=== PATIENT | female | born 1955 | race Caucasian/White ===

== ENCOUNTER → 2016-12-11 | Outpatient (CLI) | payer BC ==
[~2016-12-11] MED LIST: ALBUAER2 INH; AMLO2.5T PO; ASPCH81 PO; ATOR-24 PO; ENBER15 PO; FOLI1TAB7 PO; FURO-85 PO; GABA-113 PO; HYDR0.5T PO; LSN5 PO; MCRK20 PO; PILO5TAB10 PO; PRED-301 PO; TPRSR25 PO; ULT/50 PO
[2016-12-16 19:18] LABS: ANTI-DNASE B AB TC 256 119 U/mL (< 301)
== END | disposition home or self-care (01) ==
LOC: C.LAB 15:40
PROVIDERS: ATTEND Internal Medicine Rheumatology
DX: M35.00 Sjogren syndrome, unspecified (principal); I73.00 Raynaud's syndrome without gangrene; M81.0 Age-related osteoporosis without current pathological fracture

== ENCOUNTER → 2016-12-31 | Outpatient (CLI) | payer BC ==
[2016-12-31 09:34] LABS: HEMATOCRIT 39.3 % (37-47); MEAN CELL VOLUME 91.2 fL (80-100); MEAN CORPUSCULAR HGB CONC 31.8 g/dl (32-36); MEAN PLATELET VOLUME 10.5 fL (7.4-10.4); PLATELET COUNT 228 K/uL (130-400); RED BLOOD COUNT 4.31 M/uL (4.2-5.4)
[2016-12-31 09:48] LABS: ALT/SGPT 37 U/L (12-78); AST/SGOT 20 U/L (15-37); BLOOD UREA NITROGEN 15 mg/dl (7-18); BUN/CREATININE RATIO 17.2 (10-20); CALCIUM 9.8 mg/dl (8.5-10.1); CARBON DIOXIDE 27 mmol/L (21-32); CHLORIDE 107 mmol/L (98-107); CREATININE 0.88 mg/dl (0.60-1.20); GLUCOSE 96 mg/dl (70-99); POTASSIUM 3.8 mmol/L (3.5-5.1); SODIUM 141 mmol/L (136-145)
[2016-12-31 09:51] LABS: CHOLESTEROL 192 mg/dl (0-200); CHOLESTEROL/HDL RATIO 1.8; HDL CHOLESTEROL 104 mg/dl; LDL CHOLESTEROL CALCULATED 76 mg/dl; TRIGLYCERIDES 62 mg/dl (0-150); VERY LOW DENSITY LIPOPROT CALC 12 mg/dl
== END | disposition home or self-care (01) ==
LOC: C.LAB1850 08:43
PROVIDERS: ATTEND Internal Medicine Cardiovascular Disease
DX: Z00.00 Encounter for general adult medical examination without abnormal findings (principal); I42.9 Cardiomyopathy, unspecified; I25.10 Atherosclerotic heart disease of native coronary artery without angina pectoris; R00.2 Palpitations; I50.32 Chronic diastolic (congestive) heart failure

== ENCOUNTER → 2017-07-07 | Outpatient (CLI) | payer BC ==
[2017-07-07 14:46] LABS: ALT/SGPT 40 U/L (12-78); AST/SGOT 22 U/L (15-37); BLOOD UREA NITROGEN 19 mg/dl (7-18); BUN/CREATININE RATIO 22.2 (10-20); CARBON DIOXIDE 29 mmol/L (21-32); CHLORIDE 108 mmol/L (98-107); CREATININE 0.84 mg/dl (0.60-1.20); GLUCOSE 89 mg/dl (70-99); HEMATOCRIT 38.7 % (37-47); MEAN CELL VOLUME 91.7 fL (80-100); MEAN CORPUSCULAR HEMOGLOBIN 28.4 pg (25-34); MEAN PLATELET VOLUME 10.5 fL (7.4-10.4); PLATELET COUNT 254 K/uL (130-400); POTASSIUM 4.1 mmol/L (3.5-5.1); RED BLOOD COUNT 4.22 M/uL (4.2-5.4); SODIUM 139 mmol/L (136-145); WHITE BLOOD COUNT 6.32 K/uL (4.8-10.8)
== END | disposition home or self-care (01) ==
LOC: C.LAB1850 13:01
PROVIDERS: ATTEND Internal Medicine Cardiovascular Disease
DX: I42.9 Cardiomyopathy, unspecified (principal); I25.10 Atherosclerotic heart disease of native coronary artery without angina pectoris; R00.2 Palpitations; I50.32 Chronic diastolic (congestive) heart failure

== ENCOUNTER → 2018-01-13 | Outpatient (CLI) | payer BC ==
[~2018-01-13] MED LIST changes: -FOLI1TAB7 PO; +FOLI1TAB8 PO
--- NOTE | 2018-01-13 17:18 | DIAGNOSTIC IMAGING REPORT ---
CHEST 2 VIEWS ROUTINE CLINICAL HISTORY: Chronic cough COMPARISON STUDY: 01/16/2016 FINDINGS: The cardiac and mediastinal contours are normal. There is no evidence of focal pulmonary consolidation. There is no evidence of failure. No pleural effusions are visualized.[ IMPRESSION: No active disease in the chest. Electronically signed by: Lobo Lyle M.D. 01/13/2018 5:16 PM Dictated Date/Time: 01/13/2018 5:16 PM
[2018-01-13 17:44] LABS: HEMATOCRIT 34.3 % (37-47); HEMOGLOBIN 10.8 g/dL (12.0-16.0); MEAN CELL VOLUME 85.5 fL (80-100); MEAN CORPUSCULAR HEMOGLOBIN 26.9 pg (25-34); MEAN CORPUSCULAR HGB CONC 31.5 g/dl (32-36); MEAN PLATELET VOLUME 9.9 fL (7.4-10.4); PLATELET COUNT 228 K/uL (130-400); RED CELL DISTRIBUTION WIDTH CV 15.7 % (11.5-14.5); RED CELL DISTRIBUTION WIDTH SD 49.4 fL (36.4-46.3); WHITE BLOOD COUNT 6.22 K/uL (4.8-10.8)
[2018-01-13 18:14] LABS: ALT/SGPT 42 U/L (12-78); AST/SGOT 34 U/L (15-37); BLOOD UREA NITROGEN 14 mg/dl (7-18); CALCIUM 9.2 mg/dl (8.5-10.1); CARBON DIOXIDE 29 mmol/L (21-32); CREATININE 0.78 mg/dl (0.60-1.20); GLUCOSE 80 mg/dl (70-99); POTASSIUM 4.1 mmol/L (3.5-5.1); SODIUM 134 mmol/L (136-145)
== END | disposition home or self-care (01) ==
LOC: C.LAB 16:40
PROVIDERS: ATTEND Internal Medicine
DX: R05 Cough (principal); I42.9 Cardiomyopathy, unspecified; I25.10 Atherosclerotic heart disease of native coronary artery without angina pectoris; I50.32 Chronic diastolic (congestive) heart failure

== ENCOUNTER → 2018-01-19 | Outpatient (CLI) | payer BC ==
[2018-01-19 15:05] LABS: INFLUENZA B ANTIGEN Neg for Influ B (NEG)
== END | disposition home or self-care (01) ==
LOC: C.LABSPEC 14:39
PROVIDERS: ATTEND Internal Medicine
DX: B34.9 Viral infection, unspecified (principal)

== ENCOUNTER → 2018-03-01 | Outpatient (CLI) | payer BC ==
--- NOTE | 2018-03-02 07:48 | PULMONARY FUNCTION TEST ---
Spirometry shows a mild obstructive pattern. Repeat study done following bronchodilators showed no significant change in function. Flow volume loops were consistent with spirometric findings. Lung volumes are within the limits of normal. Diffusion is normal at 99% predicted.
== END | disposition home or self-care (01) ==
LOC: C.RC 09:39
PROVIDERS: ATTEND Internal Medicine
DX: R05 Cough (principal)

== ENCOUNTER 2023-04-29 17:26 | Inpatient (IN) ==
--- NOTE | 2023-04-29 17:39 | Emergency Department Note ---
History of Present Illness General Chief complaint: Leg Injury/Pain Stated complaint: REF BY DOC,POSSIBLE BLOOD CLOT,SWELLING LEFT LEG Time Seen by Provider: 04/29/23 17:38 History of Present Illness Maximum Pain Intensity: 7 This is a 67-year-old female with a history of basal cell carcinoma, CAD, chronic asthmatic bronchitis, chronic diastolic CHF, lymphocytic interstitial pneumonia, nonischemic cardiomyopathy, SVT, Raynaud's, reactive airway disease, Sjogren's that presents to the emergency department via private vehicle with complaints of "left leg pain/swelling, shortness of breath". The patient states that she has been experiencing left lower extremity edema x1 week. No known trauma or injury. No fevers. She has associated chills and nausea. She also notes increasing shortness of breath that is worse with exertion. She has been elevating her legs at night secondary to the edema. She states the edema is only involving the left lower extremity and not involvement on the right. She overall feels tired. She notes leg discomfort but no pain anywhere else. She notes a history of stroke in 2012. No current anticoagulant use. No history of GI bleed. No history of blood clots. She denies any blood in the stool. She denies any recent trauma or injury. Home Medications Medication Instructions Recorded Confirmed Type acetaminophen 650 mg 1,300 mg PO TID PRN Pain, Mild 06/16/19 04/29/23 History tablet,extended release albuterol sulfate 90 mcg/actuation 2 puffs inhalation Q4H PRN 06/16/19 04/29/23 History aerosol inhaler Shortness Of Breath Or Wheezing #1 g aspirin 81 mg chewable tablet 162 mg PO DAILY 06/16/19 04/29/23 History famotidine 40 mg tablet 40 mg PO BID 06/16/19 04/29/23 History hydroxychloroquine 200 mg tablet 200 mg PO DAILY 06/16/19 04/29/23 History pilocarpine HCl 7.5 mg tablet 7.5 mg PO QID 06/16/19 04/29/23 History potassium chloride 20 mEq 20 meq PO BID 06/16/19 04/29/23 History tablet,extended release prednisone 1 mg tablet 2 mg PO DAILY 06/16/19 04/29/23 History tramadol 50 mg tablet 50 mg PO Q6H PRN Pain, Moderate 06/16/19 04/29/23 History magnesium oxide 400 mg PO DAILY 01/09/20 04/29/23 History atorvastatin 40 mg tablet 40 mg PO DAILY #90 tabs 10/13/21 04/29/23 Rx losartan 25 mg tablet 25 mg PO DAILY #30 tabs 08/24/22 04/29/23 Rx metoprolol succinate 50 mg 50 mg PO DAILY #30 tabs 08/24/22 04/29/23 Rx tablet,extended release 24 hr amlodipine 2.5 mg tablet 2.5 mg PO DAILY #90 tabs 02/10/23 04/29/23 Rx cholecalciferol (vitamin D3) 50 50 mcg PO DAILY 04/29/23 04/29/23 History mcg (2,000 unit) capsule (Vitamin D3) folic acid 800 mcg tablet 0.8 mg PO DAILY 04/29/23 04/29/23 History furosemide 40 mg tablet (Lasix) 40 mg PO DAILY PRN Fluid Retention 04/29/23 04/29/23 History glucosam 750 mg-chondroi 100 1 tab PO BID 04/29/23 04/29/23 History mg-hyalur 1.65 mg-CF borate 108 mg tablet ([facility]) riboflavin (vitamin B2) 400 mg 400 mg PO DAILY 04/29/23 04/29/23 History tablet Allergies Allergy/AdvReac Type Severity Reaction Status Date / Time pneumococcal vaccine Allergy Severe Unknown Verified 04/29/23 18:42 clarithromycin Allergy Intermediate RASH Verified 04/29/23 18:42 levofloxacin Allergy Intermediate RASH, Verified 04/29/23 18:42 SWELLING Penicillins Allergy Intermediate RASH Verified 04/29/23 18:42 Quinolones Allergy Intermediate RASH Verified 04/29/23 18:42 Sulfa (Sulfonamide Allergy Intermediate RASH Verified 04/29/23 18:42 Antibiotics) erythromycin base AdvReac Intermediate UPSET Verified 04/29/23 18:42 STOMACH Past Med/Surg History Medical History Basal cell carcinoma CAD (coronary artery disease) Chronic asthmatic bronchitis Chronic diastolic CHF (congestive heart failure) Lymphocytic interstitial pneumonia Nonischemic cardiomyopathy Palpitations Paroxysmal SVT (supraventricular tachycardia) Raynaud disease Reactive airway disease Sjogrens syndrome Surgical History H/O cardiac radiofrequency ablation S/P cholecystectomy Family History (Updated 04/29/23 @ 23:45 by Alicia Wan DO) Father Cancer Sister Cancer Social History Smoking Status: Former smoker Age Started Using Tobacco: 21; Age Quit Using Tobacco: 33; Hx Alcohol Use: Yes Hx Substance Use: No Preferred Language: Pashto Pharmacy Graduate Intern Required: No Beliefs That Will Affect Care: None Current Living Situation: Alone Feels Safe at Home: Yes Review of Systems A total of 10 systems reviewed and were otherwise negative Physical Exam Vital Signs Vital Signs - 24 hr 04/29/23 17:27 04/29/23 17:49 04/29/23 18:03 Temperature 36.8 C Temperature Source Temporal Artery Scan Pulse Rate 109 H Pulse Rate [Apical] 109 H Respiratory Rate 18 19 Respiratory Effort / Characteristics Non-Labored Respiratory Depth Normal Normal Blood Pressure 132/64 Blood Pressure [Right Arm] 133/89 Blood Pressure Mean 86 Blood Pressure Mean [Right Arm] 103 Pulse Oximetry 98 96 96 Oxygen Delivery Method Room Air Room Air Room Air Oxygen Flow Rate Sepsis Recent Fever Within 48 Hours No Sepsis New/Unexplained Change in Mental Status No Sepsis Action Taken by Nursing No Action Required 04/29/23 17:53 04/29/23 19:53 Temperature Temperature Source Pulse Rate 96 H Pulse Rate [Apical] 97 H Respiratory Rate 20 Respiratory Effort / Characteristics Respiratory Depth Normal Blood Pressure Blood Pressure [Right Arm] 131/67 Blood Pressure Mean Blood Pressure Mean [Right Arm] 88 Pulse Oximetry 99 Oxygen Delivery Method Nasal Cannula Oxygen Flow Rate 2 Sepsis Recent Fever Within 48 Hours Sepsis New/Unexplained Change in Mental Status Sepsis Action Taken by Nursing VITAL SIGNS - Vital signs and nursing notes were reviewed. Stable and afebrile. GENERAL -67-year-old female appearing her stated age who is in no acute distress. Communicates well with provider and answers questions appropriately. SKIN - Without rashes. No meningeal or petechial rash however there is as ymmetric edema to the left lower extremity and no edema to the right lower extremity. HEAD - NC/AT. EYES - PERRL with EOMI bilaterally. Sclera anicteric. EARS - No deformities of external structures noted on gross examination bilaterally. NOSE - Midline and without cyanosis. No epistaxis or purulent drainage noted. MOUTH/OROPHARYNX - Without perioral cyanosis. NECK - No nuchal rigidity. LUNGS - Chest wall symmetric without accessory muscle use, intercostals retractions, or central cyanosis. Normal vesicular breath sounds CTA B/L. No wheezes, rales, or rhonchi appreciated. CARDIAC - RRR with S1/S2. No murmur, rubs, or gallops appreciated. ABDOMEN - Abdominal contour normal without pulsations or visible masses. BS normoactive all four quadrants. No tenderness, palpable masses, hepatosplenom egaly, or ascites noted. EXTREMITIES -left lower extremity and right lower extremity appropriately warm and well-perfused from an arterial standpoint noting within normal limit dorsalis pedis pulse and capillary refill. However, the left lower extremity is circumferentially edematous as noted above. No evidence of limb ischemia. Patient able to actively plantarflex/dorsiflex bilateral feet/ankles. No break in the integument. No wounds. +5/5 strength noted in UE/LE bilaterally. NEUROLOGIC - Cranial nerves II through XII grossly intact. PSYCH - A&O, and cooperates fully with examiner. Pt is very pleasant and interacts well with examiner. Course Administered Medications Heparin Sodium/Dextrose (Heparin Sodium/Dextrose) 25,000 units in 500 mls @ 17 mls/hr IV .Q24H [facility]; Protocol Stop: 05/29/23 19:59 Last Admin: 04/29/23 20:21 Dose: 850 units/hr, 17 mls/hr Documented By: Co-signed By: RAMANDEEP Discontinued Medications Heparin Sodium (Porcine) (Heparin Sod (Porcine) 1000 Unit/Ml) 4,000 units IV NOW ONE Stop: 04/29/23 20:16 Last Admin: 04/29/23 20:26 Dose: Not Given Documented By: Heparin Sodium (Porcine) (Heparin Sod (Porcine) 1000 Unit/Ml) 3,999 units IV NOW ONE Stop: 04/29/23 20:31 Last Admin: 04/29/23 20:20 Dose: 3,999 units Documented By: Co-signed By: RAMANDEEP Ioversol (Optiray 320 125ml) 119 ml IV ONCE ONE Stop: 04/29/23 18:55 Last Admin: 04/29/23 18:55 Dose: 119 ml Documented By: ROEL Critical Care Time Patient presents tachycardic with left lower extremity edema and exertional dyspnea. She was found to have bilateral pulmonary emboli with left lower extremity DVT. Patient was provided IV heparin. I have personally spent about 35 minutes of critical care time in the direct management of this patient. This includes bedside care, interpretation of diagnostic studies, and testing, discussion with consultants, patient and other required patient management activities. Medical Decision Making Laboratory Data 04/29/23 18:00 04/29/23 18:00 Lab Results 04/29/23 04/29/23 04/29/23 Range/Units 18:00 18:00 18:00 WBC 15.69 H (4.8-10.8) K/ul RBC 4.61 (4.20-5.40) M/uL Hgb 12.9 (12.0-16.0) g/dl POC Hgb (12.0-16.0) g/dl Hct 40.1 (37.0-47.0) % POC Hct (37-47) % MCV 87.0 (80.0-100.0) fL MCH 28.0 (25.0-34.0) pg MCHC 32.2 (32.0-36.0) g/dL RDW Std Deviation 54.4 H (36.4-46.3) fL RDW Coeff of Acacia 17.2 H (11.5-14.5) % Plt Count 165 (130-400) K/uL MPV 10.6 (9.4-12.4) fL Immature Gran % (Auto) 0.8 % Neut % (Auto) 80.6 % Lymph % (Auto) 9.7 % Wilkes % (Auto) 8.1 % Eos % (Auto) 0.5 % Baso % (Auto) 0.3 % Neut # (Auto) 12.64 H (1.40-6.50) K/uL Lymph # (Auto) 1.52 (1.2-3.4) K/uL Wilkes # (Auto) 1.27 H (0.11-0.59) K/uL Eos # (Auto) 0.08 (0-0.50) K/uL Baso # (Auto) 0.05 (0-0.2) K/uL Immature Gran # (Auto) 0.13 (0.01-0.20) K/uL PT 14.2 H (9.0-12.0) Seconds INR 1.3 H (0.9-1.1) APTT 26.7 (21.0-31.0) Seconds PTT Ratio 0.9 POC Sodium (135-144) mmol/L Sodium 135 L (136-145) mmol/L POC Potassium (3.3-5.0) mmol/L Potassium 4.5 (3.5-5.1) mmol/L POC Chloride (101-112) mmol/L Chloride 102 (98-107) mmol/L Carbon Dioxide 20 L (21-32) mmol/L POC Total CO2 (24-31) mmol/L Anion Gap 13 H (3-11) POC Anion Gap (16-25) mmol/L POC BUN (7-18) mg/dl BUN 52 H (6-23) mg/dl Creatinine 1.59 H (0.6-1.2) mg/dl POC Creatinine (0.6-1.3) mg/dl Est Cr Clr Drug Dosing 25.1 ml/min Est GFR ( Amer) 38.3 ml/min Est GFR (Non-Af Amer) 33.0 ml/min BUN/Creatinine Ratio 32.7 H (10-20) Glucose 107 H (70-99(Fasting)) mg/dl POC Glucose (other) (70-99) mg/dl Calcium 9.6 (8.6-10.3) mg/dl POC Ioniz Calcium Duane (1.12-1.32) mmol/l Total Bilirubin 0.9 (0.2-1.0) mg/dl AST 941 H (13-39) U/L ALT 1302 H (7-52) U/L Alkaline Phosphatase 508 H (34-104) U/L Troponin I High Sens 159.0 H* (0-14) pg/ml Total Protein 7.4 (6.0-8.3) gm/dl Albumin 4.2 (3.4-5.0) gm/dl Globulin 3.2 (2.5-4.0) gm/dl Albumin/Globulin Ratio 1.3 (0.9-2) TSH (0.300-4.500) uIu/ml SARS-CoV-2, RNA, NAAT (NEGATIVE) 06/15/23 06/15/23 06/15/23 Range/Units 18:00 18:06 18:30 WBC (4.8-10.8) K/ul RBC (4.20-5.40) M/uL Hgb (12.0-16.0) g/dl POC Hgb 14.6 (12.0-16.0) g/dl Hct (37.0-47.0) % POC Hct 43 (37-47) % MCV (80.0-100.0) fL MCH (25.0-34.0) pg MCHC (32.0-36.0) g/dL RDW Std Deviation (36.4-46.3) fL RDW Coeff of Acacia (11.5-14.5) % Plt Count (130-400) K/uL MPV (9.4-12.4) fL Immature Gran % (Auto) % Neut % (Auto) % Lymph % (Auto) % Wilkes % (Auto) % Eos % (Auto) % Baso % (Auto) % Neut # (Auto) (1.40-6.50) K/uL Lymph # (Auto) (1.2-3.4) K/uL Wilkes # (Auto) (0.11-0.59) K/uL Eos # (Auto) (0-0.50) K/uL Baso # (Auto) (0-0.2) K/uL Immature Gran # (Auto) (0.01-0.20) K/uL PT (9.0-12.0) Seconds INR (0.9-1.1) APTT (21.0-31.0) Seconds PTT Ratio POC Sodium 135 (135-144) mmol/L Sodium (136-145) mmol/L POC Potassium 4.5 (3.3-5.0) mmol/L Potassium (3.5-5.1) mmol/L POC Chloride 106 (101-112) mmol/L Chloride (98-107) mmol/L Carbon Dioxide (21-32) mmol/L POC Total CO2 19 L (24-31) mmol/L Anion Gap (3-11) POC Anion Gap 15.0 L (16-25) mmol/L POC BUN 51 H (7-18) mg/dl BUN (6-23) mg/dl Creatinine (0.6-1.2) mg/dl POC Creatinine 1.6 H (0.6-1.3) mg/dl Est Cr Clr Drug Dosing ml/min Est GFR ( Amer) ml/min Est GFR (Non-Af Amer) ml/min BUN/Creatinine Ratio (10-20) Glucose (70-99(Fasting)) mg/dl POC Glucose (other) 114 H (70-99) mg/dl Calcium (8.6-10.3) mg/dl POC Ioniz Calcium Duane 1.11 L (1.12-1.32) mmol/l Total Bilirubin (0.2-1.0) mg/dl AST (13-39) U/L ALT (7-52) U/L Alkaline Phosphatase (34-104) U/L Troponin I High Sens (0-14) pg/ml Total Protein (6.0-8.3) gm/dl Albumin (3.4-5.0) gm/dl Globulin (2.5-4.0) gm/dl Albumin/Globulin Ratio (0.9-2) TSH 1.846 (0.300-4.500) uIu/ml SARS-CoV-2, RNA, NAAT NEGATIVE (NEGATIVE) Imaging Data Radiologist's Impression: Chest CTA 04/29/23 17:55 CR Exam(s): CTA CHEST IV Amt: 119 ml optiray 320 EXAM: CT Angiography Chest With Intravenous Contrast CLINICAL HISTORY: Reason for exam: dyspnea, RLE edema. TECHNIQUE: Axial computed tomographic angiography images of the chest with intravenous contrast. CTDI is 7.05 mGy and DLP is 234.77 mGy-cm. Automated exposure control was utilized for the study. A dose lowering technique was utilized adhering to the principles of ALARA. MIP reconstructed images were created and reviewed. COMPARISON: CT chest on 07/03/2019 FINDINGS: Pulmonary arteries: Pulmonary emboli in the distal left pulmonary artery, extending into the segmental and subsegmental pulmonary arteries to the left upper lobe. Pulmonary emboli in the subsegmental pulmonary arteries to the right lower lobe and right upper lobe. Aorta: Atherosclerotic changes of the aorta. No aortic aneurysm or dissection. Lungs: Dependent atelectasis on the right. Patchy densities on the right lung base, concerning for an infectious/inflammatory process. Small nonspecific 4-5 mm nodules in the right lower lobe. Air cysts in the lower lobes. Pleural space: Small right pleural effusion. No pneumothorax. Heart: RV/LV ratio is less than 1. Mild cardiomegaly. No significant pericardial effusion. Bones/joints: No acute fracture. No dislocation. Soft tissues: Unremarkable. Lymph nodes: Unremarkable. No enlarged lymph nodes. Gallbladder and bile ducts: Prior cholecystectomy. IMPRESSION: 1. Pulmonary emboli in the distal left pulmonary artery, extending into the segmental and subsegmental pulmonary arteries to the left upper lobe. Pulmonary emboli in the subsegmental pulmonary arteries to the right lower lobe and right upper lobe. 2. Dependent atelectasis on the right. Patchy densities on the right lung base, concerning for an infectious/inflammatory process. 3. RV/LV ratio is less than 1. 4. Atherosclerotic changes of the aorta. No aortic aneurysm or dissection. 5. Small right pleural effusion. 6. Small nonspecific 4-5 mm nodules in the right lower lobe. Communications: Call Doctor Pulmonary Embolism Electronically signed by: Erika Archuleta M.D. 04/29/23 19:31 PM Venous Doppler Study 04/29/23 17:56 Exam(s): US VENOUS LEFT LOWER EXTREMITY EXAM: US Duplex Left Lower Extremity Veins CLINICAL HISTORY: Reason for exam: dyspnea, RLE edema. TECHNIQUE: Real-time duplex ultrasound scan of the left lower extremity veins integrating B-mode two-dimensional vascular structure, Doppler spectral analysis, color flow Doppler imaging and compression. COMPARISON: None FINDINGS: Deep veins: Occlusive thrombus in the left common femoral artery, proximal profunda femoral artery, superficial femoral artery, popliteal artery, and calf arteries. Superficial veins: Unremarkable. No thrombus in the visualized great saphenous vein. Soft tissues: No acute findings. No popliteal cyst. IMPRESSION: Occlusive thrombus throughout the left lower extremity veins. Electronically signed by: Erika Archuleta M.D. 04/29/23 22:13 PM MDM Narrative Patient was seen and evaluated as above in room C09. Review was performed of triage nursing notes and vital signs. I did review pertinent previous visits and patient history. After obtaining a thorough history and physical examination the above work up was performed. Patient presents to us today for assessment of atraumatic left lower extremity edema and progressively worsening exertional dyspnea and tiredness. Patient on examination is tachycardic. She is overall clinically well-appearing. Left lower extremity is edematous but appropriately warm and well-perfused from arterial standpoint. There is no evidence of phlegmasia/cerulea dolens. No evidence of limb ischemia. Options of care were discussed with the patient. IV access was established. Labs were drawn. [id number] creatinine was obtained and patient sent for CTA of the chest. Labs reveal leukocytosis 15.69. No anemia. Coags drawn. There is evidence of metabolic abnormality noting anion gap of 13, CO2 of 20, BUN of 52, creatinine of 1.59. There is evidence of significant transaminitis noting AST at 949 and ALT at 11/17/2001. Patient denies any excessive acetaminophen use. Alk phos 508. Troponin elevated at 159 and is felt to be secondary to PE. With the CT scan of the chest revealing pulmonary emboli in the setting of tachycardia and unilateral lower extremity edema I do believe that IV heparin is indicated. Bolus and drip ordered. Prior to IV heparin I did thoroughly discuss benefit versus risk of IV heparin. I discussed indication with the patient as well as alternatives. At this time no contraindications have been identified and it is felt that the benefits overall outweigh risk. Patient was pending ultrasound report of the left lower extremity at time of IV heparin. At this time I do believe that further evaluation and management in the inpatient setting is warranted. Patient reevaluated throughout her stay and continued to feel overall well. Left lower extremity discomfort was lessening. Case discussed with the hospitalist service. Please refer to further documentation regarding her stay. Ultrasound did result and reveals occlusive thrombus throughout the left lower extremity veins. It is important to note that upon evaluation and reassessment the patient does not have any findings to suggest cerulea dolens/limb ischemia. Case was discussed with the attending physician. An order was placed for continuous cardiac monitoring and revealed a rate of 115 bpm. EKG was obtained and reveals sinus tachycardia at a rate of 115 bpm. QTc 462. QRS 72. This was compared to EKG of January 16, 2016. T wave abnormalities noted. GCS: 15 In the evaluation and treatment of this patient the following differential diagnoses were entertained: WA, PE, dissection, DVT, compartment syndrome, pneumonia, among others. Impression & Plan Pulmonary emboli, DVT (deep venous thrombosis) Discharge Plan Visit Data Chief Complaint: Leg Injury/Pain Stated Complaint: REF BY DOC,POSSIBLE BLOOD CLOT,SWELLING LEFT LEG ED Provider: Charly Swanson ED Midlevel Provider: Catrachito Mccarty Discharge Problem: Pulmonary emboli, DVT (deep venous thrombosis) Patient Disposition: Admitted As Inpatient Condition: Good Discharge Instructions Interventions: ED Discharge Assessment Last Done: 04/29/23 22:28
[2023-04-29 18:22] LABS: iSTAT Creatinine 1.6 mg/dl (0.6-1.3); iSTAT Hemoglobin 14.6 g/dl (12.0-16.0); iSTAT Ionized Calcium 1.11 mmol/l (1.12-1.32); iSTAT Potassium 4.5 mmol/L (3.3-5.0)
[2023-04-29 18:24] LABS: Basophils # (auto) 0.05 K/uL (0-0.2); Basophils % (auto) 0.3 %; Eosinophils # (auto) 0.08 K/uL (0-0.50); Eosinophils % (auto) 0.5 %; Hematocrit (blood only) 40.1 % (37.0-47.0); Hemoglobin 12.9 g/dl (12.0-16.0); Immature Granulocytes # (auto) 0.13 K/uL (0.01-0.20); Immature Granulocytes % (auto) 0.8 %; Lymphocytes # (auto) 1.52 K/uL (1.2-3.4); Lymphocytes % (auto) 9.7 %; Mean Corpuscular Hgb Conc 32.2 g/dL (32.0-36.0); Mean Platelet Volume 10.6 fL (9.4-12.4); Monocytes # (auto) 1.27 K/uL (0.11-0.59); Monocytes % (auto) 8.1 %; Neutrophils # (auto) 12.64 K/uL (1.40-6.50); Neutrophils % (auto) 80.6 %; Platelet Count 165 K/uL (130-400); RDW Coefficient of Variation 17.2 % (11.5-14.5); RDW Standard Deviation 54.4 fL (36.4-46.3); Red Blood Count 4.61 M/uL (4.20-5.40); White Blood Count 15.69 K/ul (4.8-10.8)
[2023-04-29 18:39] LABS: BUN Creatinine Ratio 32.7 (10-20); Calcium 9.6 mg/dl (8.6-10.3); Creatinine Clr Calc Pharmacy 25.1 ml/min; Est GFR (African American) 38.3 ml/min; Potassium 4.5 mmol/L (3.5-5.1)
[2023-04-29 18:50] LABS: Albumin Globulin Ratio 1.3 (0.9-2); Albumin Level 4.2 gm/dl (3.4-5.0); Bilirubin,Total 0.9 mg/dl (0.2-1.0); Globulin 3.2 gm/dl (2.5-4.0); Total Protein 7.4 gm/dl (6.0-8.3)
[2023-04-29 18:52] LABS: INR 1.3 (0.9-1.1); Partial Thromboplastin Ratio 0.9; Partial Thromboplastin Time 26.7 Seconds (21.0-31.0); Prothrombin Time 14.2 Seconds (9.0-12.0)
[2023-04-29] MEDS ORDERED: OPTIRAY 320 125ml IV ONE (18:54)
--- NOTE | 2023-04-29 19:32 | CT Scan Report ---
Exam(s): CTA CHEST IV Amt: 119 ml optiray 320 EXAM: CT Angiography Chest With Intravenous Contrast CLINICAL HISTORY: Reason for exam: dyspnea, RLE edema. TECHNIQUE: Axial computed tomographic angiography images of the chest with intravenous contrast. CTDI is 7.05 mGy and DLP is 234.77 mGy-cm. Automated exposure control was utilized for the study. A dose lowering technique was utilized adhering to the principles of ALARA. MIP reconstructed images were created and reviewed. COMPARISON: CT chest on 07/03/2019 FINDINGS: Pulmonary arteries: Pulmonary emboli in the distal left pulmonary artery, extending into the segmental and subsegmental pulmonary arteries to the left upper lobe. Pulmonary emboli in the subsegmental pulmonary arteries to the right lower lobe and right upper lobe. Aorta: Atherosclerotic changes of the aorta. No aortic aneurysm or dissection. Lungs: Dependent atelectasis on the right. Patchy densities on the right lung base, concerning for an infectious/inflammatory process. Small nonspecific 4-5 mm nodules in the right lower lobe. Air cysts in the lower lobes. Pleural space: Small right pleural effusion. No pneumothorax. Heart: RV/LV ratio is less than 1. Mild cardiomegaly. No significant pericardial effusion. Bones/joints: No acute fracture. No dislocation. Soft tissues: Unremarkable. Lymph nodes: Unremarkable. No enlarged lymph nodes. Gallbladder and bile ducts: Prior cholecystectomy. IMPRESSION: 1. Pulmonary emboli in the distal left pulmonary artery, extending into the segmental and subsegmental pulmonary arteries to the left upper lobe. Pulmonary emboli in the subsegmental pulmonary arteries to the right lower lobe and right upper lobe. 2. Dependent atelectasis on the right. Patchy densities on the right lung base, concerning for an infectious/inflammatory process. 3. RV/LV ratio is less than 1. 4. Atherosclerotic changes of the aorta. No aortic aneurysm or dissection. 5. Small right pleural effusion. 6. Small nonspecific 4-5 mm nodules in the right lower lobe. Communications: Call Doctor Pulmonary Embolism Electronically signed by: Erika Archuleta M.D. 04/29/23 19:31 PM
[2023-04-29] MEDS ORDERED: Heparin IV Adult Wt-Based Standard WITH Bolus Protocol IV STA (19:37)
[2023-04-29] MEDS ORDERED: HEPARIN SOD (PORCINE) 1000 UNIT/ML IV ONE ×3 (19:52→20:30)
[2023-04-29] MEDS ORDERED: HEPARIN SODIUM/DEXTROSE 25,000 UNITS/500 ML BAG IV SCH (20:00)
--- NOTE | 2023-04-29 21:36 | History & Physical Report ---
Date of Service April 29, 2023 Assessment & Plan (1) Pulmonary emboli: (2) DVT (deep venous thrombosis): (3) Abnormal LFTs: (4) CAD (coronary artery disease): (5) Chronic diastolic CHF (congestive heart failure): (6) Sjogrens syndrome: (7) Hypertension: Plan: 67yo female presenting with one week of LLE edema and pain as well as progressive dyspnea. Found to have large occlusive LLE DVT as well as multiple PEs. Elevation of troponin to 159, possible right heart strain. Patient tachycardic on arrival. Now with HR=92bpm. Blood pressure has remained stable. Pulmonary Emboli/LLE DVT: PESI Score 88 - Class III risk - patient with history of HF and chronic lung disease which contributes to high score. Shock index=0.8, mildly elevated. Patient is overall asymptomatic. Denies chest pain or SOB at present. No obvious cause. Patient denies trauma or immobility preceding the LLE edema. She is not on hormone therapy. She is not uptodate on her cancer screening - consider underlying malignancy. -Admit to PCU -Continue heparin gtt -Check 2D echo -Trend troponin -Supplemental O2 as needed -Continue home Tramadol as needed Abnormal LFTs: Patient with elevated LFTs - CCM=503, ODU=7571 and EN=923. Last checked in 07/2020 and were normal. Ddx to include viral hepatitis, medication effects, venous thrommbosis -Check liver US with doppler -Check Acetaminophen level -Check Ammonia -Check acute hepatitis panel -Repeat LFTs in AM -Hold Atorvastatin Consider abdominal CT CAD: Patient with nonobstructive CAD. She was seen by Cardiology last on 06/30/21. Patient denies chest pain -Continue ASA - decrease to 81mg po daily -Holding Atorvastatin now given elevated LFTs -Holding antihypertensives - Losartan and Metoprolol given acute PE -Repeat troponin Chronic diastolic CHF - NICM - thought to be secondary to myocarditis or possibly Takotsubo. Well compensated, no evidence of failure -Holding Metoprolol and Losartan for now -Check 2D echo Sjogrens syndrome -Continue Hydroxychloroquine -Continue Prednisone Hypertension - blood pressure adequate at present. Concern for developing hypotension in setting of acute PE with large DVT -Hold Amlodipine -Hold Losartan -Hold Metoprolol -Continue to monitor F/E/N - Heplock. Electroltyes WNL. PO as tolerated Ppx - Heparin gtt Dispo - Admit to PCU Code - DNR/DNI per discussion with patient History of Present Illness Chief Complaint: LLE swelling Primary Care Provider: NO PCP Pia Bonilla is a pleasant 67yo female with history of CAD, NICM and Sjogrens syndrome presenting with LLE edema and SOB. Patient developed acute swelling of her LLE approximately one week ago involving the entire left leg and thigh. Her leg was stiff and painful. She thought the swelling was secondary to lymphedema so she has been wrapping her leg as well as performing massage and elevating it. Her edema has persisted and she has had progressive pain in her RLE, making walking and ADLs difficult. Patient also admits to 1 week of progressive PELAYO. She denies chest pain, palpitations, dizziness or syncope. She has never had a blood clot before. Denies recent travel or prolonged immobility. Denies hormone use, trauma or family history of VTE. She is NOT up to date with her age appropriate cancer screenings to include Pap smear, mammogram or colonoscopy. Patient has had ongoing fatigue, chills and intermittent diarrhea as well as body aches and nausea with several episodes of bilious vomiting. She admits to poor appetite and decreased oral intake over the last week as well as generalized weakness and falls. In the ER she is tachycardic with HR of 109. Saturations have been adequate on room air - patient placed on supplemental O2 by DE for comfort. ER Course: Heparin gtt Allergies Allergy/AdvReac Type Severity Reaction Status Date / Time pneumococcal vaccine Allergy Severe Unknown Verified 04/29/23 18:42 clarithromycin Allergy Intermediate RASH Verified 04/29/23 18:42 levofloxacin Allergy Intermediate RASH, Verified 04/29/23 18:42 SWELLING Penicillins Allergy Intermediate RASH Verified 04/29/23 18:42 Quinolones Allergy Intermediate RASH Verified 04/29/23 18:42 Sulfa (Sulfonamide Allergy Intermediate RASH Verified 04/29/23 18:42 Antibiotics) erythromycin base AdvReac Intermediate UPSET Verified 04/29/23 18:42 STOMACH Home Medications Medication Instructions Recorded Confirmed Type acetaminophen 650 mg 1,300 mg PO TID PRN Pain, Mild 06/16/19 04/29/23 History tablet,extended release albuterol sulfate 90 mcg/actuation 2 puffs inhalation Q4H PRN 06/16/19 04/29/23 History aerosol inhaler Shortness Of Breath Or Wheezing #1 g aspirin 81 mg chewable tablet 162 mg PO DAILY 06/16/19 04/29/23 History famotidine 40 mg tablet 40 mg PO BID 06/16/19 04/29/23 History hydroxychloroquine 200 mg tablet 200 mg PO DAILY 06/16/19 04/29/23 History pilocarpine HCl 7.5 mg tablet 7.5 mg PO QID 06/16/19 04/29/23 History potassium chloride 20 mEq 20 meq PO BID 06/16/19 04/29/23 History tablet,extended release prednisone 1 mg tablet 2 mg PO DAILY 06/16/19 04/29/23 History tramadol 50 mg tablet 50 mg PO Q6H PRN Pain, Moderate 06/16/19 04/29/23 History magnesium oxide 400 mg PO DAILY 01/09/20 04/29/23 History atorvastatin 40 mg tablet 40 mg PO DAILY #90 tabs 10/13/21 04/29/23 Rx losartan 25 mg tablet 25 mg PO DAILY #30 tabs 08/24/22 04/29/23 Rx metoprolol succinate 50 mg 50 mg PO DAILY #30 tabs 08/24/22 04/29/23 Rx tablet,extended release 24 hr amlodipine 2.5 mg tablet 2.5 mg PO DAILY #90 tabs 02/10/23 04/29/23 Rx cholecalciferol (vitamin D3) 50 50 mcg PO DAILY 04/29/23 04/29/23 History mcg (2,000 unit) capsule (Vitamin D3) folic acid 800 mcg tablet 0.8 mg PO DAILY 04/29/23 04/29/23 History furosemide 40 mg tablet (Lasix) 40 mg PO DAILY PRN Fluid Retention 04/29/23 04/29/23 History glucosam 750 mg-chondroi 100 1 tab PO BID 04/29/23 04/29/23 History mg-hyalur 1.65 mg-CF borate 108 mg tablet ([email or web address]) riboflavin (vitamin B2) 400 mg 400 mg PO DAILY 04/29/23 04/29/23 History tablet Past Med/Surg History Medical History Basal cell carcinoma CAD (coronary artery disease) Chronic asthmatic bronchitis Chronic diastolic CHF (congestive heart failure) Lymphocytic interstitial pneumonia Nonischemic cardiomyopathy Palpitations Paroxysmal SVT (supraventricular tachycardia) Raynaud disease Reactive airway disease Sjogrens syndrome Surgical History H/O cardiac radiofrequency ablation S/P cholecystectomy Family History (Updated 04/29/23 @ 23:45 by Alicia Wan DO) Father Cancer Sister Cancer Social History Smoking Status: Former smoker Age Started Using Tobacco: 21; Age Quit Using Tobacco: 33; Hx Alcohol Use: Yes Hx Substance Use: No Preferred Language: 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 Beliefs That Will Affect Care: None Current Living Situation: Alone Feels Safe at Home: Yes Review of Systems Review of Systems: All systems reviewed & are unremarkable except as noted in HPI & below Physical Exam Physical Exam: General: patient resting comfortably, NAD, non-toxic in appearance, AA&O x 4 Skin: warm, dry, intact, no rashes or lesions HEENT: NC/AT, PERRL, EOMI, anicteric sclera, conjunctiva without injection, external ear normal to inspection and nontender, nares patent, moist mucus membranes, dentition intact, no oropharyngeal lesions, neck supple, trachea midline, no LAD, no thyromegaly, no JVD Heart: +S1/S2, regular, no m/r/g Lungs: equal air entry bilaterally, no rales/rhonchi/wheezes Abd: +BS, soft, NT/ND, no masses/organomegaly/ascites Ext: warm, 2+ pulses in UE/LE bilaterally, no clubbing/cyanosis, 3+ edema of LLE to thigh, tender to palpation, 2+ pulses, slight discoloration of toes Neuro: nonfocal, patient AA&O x 4, speech intact, no facial droop, moving all extremities on command with equal strength 5/5 Results & Data Results & Data Vital Signs (Past 12 Hours) Vital Signs Temp Pulse Pulse Resp BP BP Pulse Ox 04/29/23 19:53 97 H 20 131/67 99 04/29/23 17:53 96 H 04/29/23 18:03 96 04/29/23 17:49 109 H 19 133/89 96 04/29/23 17:27 36.8 C 109 H 18 132/64 98 O2 Del Method O2 Flow Rate 04/29/23 19:53 Nasal Cannula 2 04/29/23 17:53 04/29/23 18:03 Room Air 04/29/23 17:49 Room Air 04/29/23 17:27 Room Air Laboratory Results Laboratory Results WBC 15.69 K/ul (4.8-10.8) H 04/29/23 18:00 RBC 4.61 M/uL (4.20-5.40) 04/29/23 18:00 Hgb 12.9 g/dl (12.0-16.0) 04/29/23 18:00 POC Hgb 14.6 g/dl (12.0-16.0) 04/29/23 18:06 Hct 40.1 % (37.0-47.0) 04/29/23 18:00 POC Hct 43 % (37-47) 04/29/23 18:06 MCV 87.0 fL (80.0-100.0) 04/29/23 18:00 MCH 28.0 pg (25.0-34.0) 04/29/23 18:00 MCHC 32.2 g/dL (32.0-36.0) 04/29/23 18:00 RDW Std Deviation 54.4 fL (36.4-46.3) H 04/29/23 18:00 RDW Coeff of Acacia 17.2 % (11.5-14.5) H 04/29/23 18:00 Plt Count 165 K/uL (130-400) 04/29/23 18:00 MPV 10.6 fL (9.4-12.4) 04/29/23 18:00 Immature Gran % (Auto) 0.8 % 04/29/23 18:00 Neut % (Auto) 80.6 % 04/29/23 18:00 Lymph % (Auto) 9.7 % 04/29/23 18:00 [place] % (Auto) 8.1 % 04/29/23 18:00 Eos % (Auto) 0.5 % 04/29/23 18:00 Baso % (Auto) 0.3 % 04/29/23 18:00 Neut # (Auto) 12.64 K/uL (1.40-6.50) H 04/29/23 18:00 Lymph # (Auto) 1.52 K/uL (1.2-3.4) 04/29/23 18:00 [place] # (Auto) 1.27 K/uL (0.11-0.59) H 04/29/23 18:00 Eos # (Auto) 0.08 K/uL (0-0.50) 04/29/23 18:00 Baso # (Auto) 0.05 K/uL (0-0.2) 04/29/23 18:00 Immature Gran # (Auto) 0.13 K/uL (0.01-0.20) 04/29/23 18:00 PT 14.2 Seconds (9.0-12.0) H 04/29/23 18:00 INR 1.3 (0.9-1.1) H 04/29/23 18:00 APTT 26.7 Seconds (21.0-31.0) 04/29/23 18:00 PTT Ratio 0.9 04/29/23 18:00 POC Sodium 135 mmol/L (135-144) 04/29/23 18:06 Sodium 135 mmol/L (136-145) L 04/29/23 18:00 POC Potassium 4.5 mmol/L (3.3-5.0) 04/29/23 18:06 Potassium 4.5 mmol/L (3.5-5.1) 04/29/23 18:00 POC Chloride 106 mmol/L (101-112) 04/29/23 18:06 Chloride 102 mmol/L (98-107) 04/29/23 18:00 Carbon Dioxide 20 mmol/L (21-32) L 04/29/23 18:00 POC Total CO2 19 mmol/L (24-31) L 04/29/23 18:06 Anion Gap 13 (3-11) H 04/29/23 18:00 POC Anion Gap 15.0 mmol/L (16-25) L 04/29/23 18:06 POC BUN 51 mg/dl (7-18) H 04/29/23 18:06 BUN 52 mg/dl (6-23) H 04/29/23 18:00 Creatinine 1.59 mg/dl (0.6-1.2) H 04/29/23 18:00 POC Creatinine 1.6 mg/dl (0.6-1.3) H 04/29/23 18:06 Est Cr Clr Drug Dosing 25.1 ml/min 04/29/23 18:00 Est GFR ( Amer) 38.3 ml/min 04/29/23 18:00 Est GFR (Non-Af Amer) 33.0 ml/min 04/29/23 18:00 BUN/Creatinine Ratio 32.7 (10-20) H 04/29/23 18:00 Glucose 107 mg/dl (70-99(Fasting)) H 04/29/23 18:00 POC Glucose (other) 114 mg/dl (70-99) H 04/29/23 18:06 Calcium 9.6 mg/dl (8.6-10.3) 04/29/23 18:00 POC Ioniz Calcium [place] 1.11 mmol/l (1.12-1.32) L 04/29/23 18:06 Total Bilirubin 0.9 mg/dl (0.2-1.0) 04/29/23 18:00 AST 941 U/L (13-39) H 04/29/23 18:00 ALT 1302 U/L (7-52) H 04/29/23 18:00 Alkaline Phosphatase 508 U/L (34-104) H 04/29/23 18:00 Troponin I High Sens 159.0 pg/ml (0-14) H* 04/29/23 18:00 Total Protein 7.4 gm/dl (6.0-8.3) 04/29/23 18:00 Albumin 4.2 gm/dl (3.4-5.0) 04/29/23 18:00 Globulin 3.2 gm/dl (2.5-4.0) 04/29/23 18:00 Albumin/Globulin Ratio 1.3 (0.9-2) 04/29/23 18:00 TSH 1.846 uIu/ml (0.300-4.500) 04/29/23 18:00 SARS-CoV-2, RNA, NAAT NEGATIVE (NEGATIVE) 04/29/23 18:30 Impressions Chest CTA 04/29/23 17:55 CR Exam(s): CTA CHEST IV Amt: 119 ml optiray 320 EXAM: CT Angiography Chest With Intravenous Contrast CLINICAL HISTORY: Reason for exam: dyspnea, RLE edema. TECHNIQUE: Axial computed tomographic angiography images of the chest with intravenous contrast. CTDI is 7.05 mGy and DLP is 234.77 mGy-cm. Automated exposure control was utilized for the study. A dose lowering technique was utilized adhering to the principles of ALARA. MIP reconstructed images were created and reviewed. COMPARISON: CT chest on 07/03/2019 FINDINGS: Pulmonary arteries: Pulmonary emboli in the distal left pulmonary artery, extending into the segmental and subsegmental pulmonary arteries to the left upper lobe. Pulmonary emboli in the subsegmental pulmonary arteries to the right lower lobe and right upper lobe. Aorta: Atherosclerotic changes of the aorta. No aortic aneurysm or dissection. Lungs: Dependent atelectasis on the right. Patchy densities on the right lung base, concerning for an infectious/inflammatory process. Small nonspecific 4-5 mm nodules in the right lower lobe. Air cysts in the lower lobes. Pleural space: Small right pleural effusion. No pneumothorax. Heart: RV/LV ratio is less than 1. Mild cardiomegaly. No significant pericardial effusion. Bones/joints: No acute fracture. No dislocation. Soft tissues: Unremarkable. Lymph nodes: Unremarkable. No enlarged lymph nodes. Gallbladder and bile ducts: Prior cholecystectomy. IMPRESSION: 1. Pulmonary emboli in the distal left pulmonary artery, extending into the segmental and subsegmental pulmonary arteries to the left upper lobe. Pulmonary emboli in the subsegmental pulmonary arteries to the right lower lobe and right upper lobe. 2. Dependent atelectasis on the right. Patchy densities on the right lung base, concerning for an infectious/inflammatory process. 3. RV/LV ratio is less than 1. 4. Atherosclerotic changes of the aorta. No aortic aneurysm or dissection. 5. Small right pleural effusion. 6. Small nonspecific 4-5 mm nodules in the right lower lobe. Communications: Call Doctor Pulmonary Embolism Electronically signed by: Erika Archuleta M.D. 04/29/23 19:31 PM Venous Doppler Study 04/29/23 17:56 Exam(s): US VENOUS LEFT LOWER EXTREMITY EXAM: US Duplex Left Lower Extremity Veins CLINICAL HISTORY: Reason for exam: dyspnea, RLE edema. TECHNIQUE: Real-time duplex ultrasound scan of the left lower extremity veins integrating B-mode two-dimensional vascular structure, Doppler spectral analysis, color flow Doppler imaging and compression. COMPARISON: None FINDINGS: Deep veins: Occlusive thrombus in the left common femoral artery, proximal profunda femoral artery, superficial femoral artery, popliteal artery, and calf arteries. Superficial veins: Unremarkable. No thrombus in the visualized great saphenous vein. Soft tissues: No acute findings. No popliteal cyst. IMPRESSION: Occlusive thrombus throughout the left lower extremity veins. Electronically signed by: Erika Archuleta M.D. 04/29/23 22:13 PM ECG Additional Comments: EKG with ST at 115bpm, normal axis, TA=055, QRS=72, HIs=958, ST changes present in lateral leads, P waves appear slightly peaked, ?SIRIA? PG Care Time/CCT Total # of Minutes Spent Total Time Spent with Patient: Total time spent is greater than 50% in coordination of care (as documented) at patient's floor/unit and/or counseling patient: Coding Level of Care Code 46142 INT INP/OBS CARE 3/75MIN Diagnoses Pulmonary emboli I26.99 DVT (deep venous thrombosis) I82.409 Abnormal LFTs R79.89 CAD (coronary artery disease) I25.10 Chronic diastolic CHF (congestive heart failure) I50.32 Sjogrens syndrome M35.00 Hypertension I10
--- NOTE | 2023-04-29 22:13 | Ultrasound Report ---
Exam(s): US VENOUS LEFT LOWER EXTREMITY EXAM: US Duplex Left Lower Extremity Veins CLINICAL HISTORY: Reason for exam: dyspnea, RLE edema. TECHNIQUE: Real-time duplex ultrasound scan of the left lower extremity veins integrating B-mode two-dimensional vascular structure, Doppler spectral analysis, color flow Doppler imaging and compression. COMPARISON: None FINDINGS: Deep veins: Occlusive thrombus in the left common femoral artery, proximal profunda femoral artery, superficial femoral artery, popliteal artery, and calf arteries. Superficial veins: Unremarkable. No thrombus in the visualized great saphenous vein. Soft tissues: No acute findings. No popliteal cyst. IMPRESSION: Occlusive thrombus throughout the left lower extremity veins. Electronically signed by: Erika Archuleta M.D. 04/29/23 22:13 PM
[2023-04-29] MEDS ORDERED: ALBUTEROL HFA 8 GM INHALER INH PRN (22:55)
[2023-04-29] MEDS ORDERED: traMADol HCL 50 MG TABLET PO PRN (22:55)
[2023-04-30 03:03] LABS: Partial Thromboplastin Ratio > 4.9
[2023-04-30 03:20] LABS: Partial Thromboplastin Time > 139.0 Seconds (21.0-31.0)
[2023-04-30 04:57] LABS: Hematocrit (blood only) 34.3 % (37.0-47.0); Hemoglobin 11.3 g/dl (12.0-16.0); Mean Corpuscular Hemoglobin 27.8 pg (25.0-34.0); Mean Corpuscular Hgb Conc 32.9 g/dL (32.0-36.0); Mean Corpuscular Volume 84.3 fL (80.0-100.0); Mean Platelet Volume 10.6 fL (9.4-12.4); Platelet Count 158 K/uL (130-400); RDW Coefficient of Variation 17.2 % (11.5-14.5); RDW Standard Deviation 53.1 fL (36.4-46.3); Red Blood Count 4.07 M/uL (4.20-5.40); White Blood Count 16.32 K/ul (4.8-10.8)
[2023-04-30 05:15] LABS: Albumin Level 3.4 gm/dl (3.4-5.0); BUN Creatinine Ratio 37.7 (10-20); Bilirubin Direct 0.3 mg/dl (0-0.2); Bilirubin,Total 0.8 mg/dl (0.2-1.0); Calcium 8.9 mg/dl (8.6-10.3); Est GFR (African American) 52.7 ml/min; Est GFR (Non-African American) 45.5 ml/min; Potassium 4.8 mmol/L (3.5-5.1); Total Protein 5.9 gm/dl (6.0-8.3)
[2023-04-30 06:06] LABS: Partial Thromboplastin Time 55.2 Seconds (21.0-31.0)
--- NOTE | 2023-04-30 07:05 | Ultrasound Report ---
ABDOMINAL ULTRASOUND, RIGHT UPPER QUADRANT HISTORY: Acutely elevated LFTs abnormal LFTs. COMPARISON: CTA chest of same day FINDINGS: Pancreas: The pancreas demonstrates a normal echotexture. Liver: Unremarkable. Gallbladder: Surgically absent. CBD: 0.3 cm. Right kidney: Mild pelvocaliectasis with suggested urothelial thickening. IMPRESSION: 1. Cholecystectomy. 2. No biliary duct dilation. 3. Mild right-sided pelvocaliectasis with urothelial thickening. Correlate with urinalysis. ACT 112: Negative or not required by law. Electronically signed by: Cain Mei M.D. 04/30/2023 7:04 AM
--- NOTE | 2023-04-30 07:32 | Ultrasound Report ---
US duplex portal hepatic veins CLINICAL HISTORY: elevated LFTs, extensive clot TECHNIQUE: Grayscale, color and spectral waveform Doppler examination of the abdomen was performed. Comparison: None available at the time of this dictation. FINDINGS: The hepatic veins, portal veins, IVC and splenic vein are patent with no thrombus identified. Flow is in the correct direction. No ascites is seen. IMPRESSION: No portal vein thrombosis. ACT 112: Negative or not required by law. Electronically signed by: Parker Salguero M.D. 04/30/2023 7:30 AM
[2023-04-30] MEDS: FAMOTIDINE 20 MG TAB PO SCH (08:43)
[2023-04-30] MEDS: HYDROXYCHLOROQUINE SULFATE 200 MG TAB PO SCH (08:45)
[2023-04-30] MEDS: predniSONE 1 MG TAB PO SCH (08:45)
[2023-04-30] MEDS: ASPIRIN 81 MG CHEW PO SCH (08:46)
[2023-04-30] MEDS: METOPROLOL SUCC 50MG EXT REL TAB PO SCH (08:56)
[2023-04-30] MEDS ORDERED: ASPIRIN 81 MG CHEW PO SCH (09:00)
--- NOTE | 2023-04-30 11:25 | XCELERA ---
[id number]
--- NOTE | 2023-04-30 11:33 | Electrocardiogram Report ---
Test Reason : Blood Pressure : / mmHG Vent. Rate : 115 BPM Atrial Rate : 115 BPM P-R Int : 134 ms QRS Dur : 072 ms QT Int : 334 ms P-R-T Axes : 068 047 191 degrees QTc Int : 462 ms Sinus tachycardia Abnormal ECG When compared with ECG of 16-JAN-2016 17:18, Premature ventricular complexes are no longer Present Vent. rate has increased BY 38 BPM Nonspecific T wave abnormality now evident in Inferior leads T wave inversion now evident in Anterolateral leads Confirmed by Giovany Anderson ([id number]) on 04/30/2023 11:32:52 AM Referred By: REFERRED SELF Confirmed By:Enrico Anderson
[2023-04-30 13:47] LABS: Partial Thromboplastin Ratio 1.6
[2023-04-30 13:48] LABS: Partial Thromboplastin Time 45.3 Seconds (21.0-31.0)
--- NOTE | 2023-04-30 14:33 | Hospitalist Progress Note ---
Date of Service April 30, 2023 Assessment & Plan (1) Pulmonary emboli: Plan: Bilateral. Not producing respiratory failure however. She currently is on a heparin drip. This will eventually be switched to an oral DOAC at discharge (2) DVT (deep venous thrombosis): Plan: Left lower extremity DVT. No previous history. Currently on heparin drip. DOAC therapy at discharge (3) Abnormal LFTs: Plan: Now trending downward. Statin therapy has been discontinued. She is status postcholecystectomy. No evidence of portal venous thrombosis (4) CAD (coronary artery disease): Plan: Suspected ischemic heart disease based on regional wall motion abnormalities and diminished ejection fraction. Currently asymptomatic. (5) Chronic diastolic CHF (congestive heart failure): Plan: Stable. Monitor intake and output. Continue current medication. Combined systolic/diastolic CHF (6) Sjogrens syndrome: Plan: Prednisone dependent. Stable (7) Hypertension: Plan: Stable. Continue current medical management (8) Ischemic heart disease: Plan: Suspected, based on appearance of cardiac echo. Continue current medical management for now. Cardiology consultation pending Plan Anticipate eventual discharge to home Admission and Anticipated Discharge Date Admission Date: April 29, 2023 Subjective Alert and oriented. No distress. She is not requiring supplemental oxygen. She remains on a heparin drip for the left lower extremity DVT and multiple bilateral PE. She is not requiring any oxygen supplementation. Unfortunately, her cardiac echo reveals severe left ventricular systolic function with regional wall motion abnormalities. She probably has underlying ischemic heart disease. Cardiology consultation has been requested. Liver enzymes are trending downward. Statin therapy remains on hold. Creatinine has also improved to 1.2 Review of Systems Review of Systems: Constitutional-no fever or chills ENT-no blurred vision, no double vision, no epistaxis, no sore throat Respiratory-no cough, no wheezing, no shortness of breath Cardiac-no palpitations, no chest pain, no syncope GI-no nausea, vomiting, diarrhea, melena, hematochezia -no urinary retention, no urinary incontinence, no dysuria, no hematuria Musculoskeletal-recently developed left lower extremity edema Skin-no bruising, no rashes, no pruritus Neuro-no isolated weakness, no paresthesia, no weakness Psych-no depression, no anxiety Physical Exam Physical Exam: General-alert and oriented x3, no fevers, no chills HEENT-head atraumatic and normocephalic, pupils equal and reactive to light, extraocular muscles intact Neck-no lymphadenopathy or thyromegaly, trachea midline Chest-clear to auscultation percussion. No rales wheezing or rhonchi Cardiac-regular rate and rhythm, normal S1 and S2 Abdomen-normal bowel sounds, nontender, no hepatosplenomegaly Extremities-1+ edema left lower extremity below the knee Neuro-cranial nerves II through XII intact, motor and sensory function within normal limits, strength symmetrical , no focal deficits Psych-normal affect, normal mood Results & Data Results & Data Vital Signs (Past 12 Hours) Vital Signs Temp Pulse Resp BP BP Pulse Ox O2 Del Method 04/30/23 12:02 36.6 C 95 H 20 115/62 97 Room Air 04/30/23 10:50 Room Air 04/30/23 07:47 36.9 C 97 H 18 108/58 L 99 Room Air 04/30/23 04:39 36.7 C 94 H 20 102/64 99 Room Air Laboratory Results 04/30/23 04:32 04/30/23 04:32 PG Care Time/CCT Total # of Minutes Spent Total Time Spent with Patient: Total time spent is greater than 50% in coordination of care (as documented) at patient's floor/unit and/or counseling patient: Coding Level of Care Code 91584 SUB INP/OBS CARE 3/50MIN Diagnoses Pulmonary emboli I26.99 DVT (deep venous thrombosis) I82.409 Abnormal LFTs R79.89 CAD (coronary artery disease) I25.10 Chronic diastolic CHF (congestive heart failure) I50.32 Sjogrens syndrome M35.00 Hypertension I10 Ischemic heart disease I25.9
--- NOTE | 2023-04-30 17:04 | Cardiology Consultation ---
Date of Consultation April 30, 2023 Assessment & Plan (1) Nonischemic cardiomyopathy: (2) CAD (coronary artery disease): (3) Left ventricular thrombus: (4) Mitral regurgitation: (5) Elevated troponin: Plan 1. cardiomyopathy: She has a history of nonischemic cardiomyopathy. This was felt to be stress induced. LV function has declined significantly since the last evaluation. The echo images are not entirely consistent with a stress- induced cardiomyopathy. In fact, there does appear to be regional wall motion abnormality involving the apical posterior wall. She did not report overt symptoms of congestive heart failure leading up to her admission. She did not describe orthopnea and only had unilateral swelling involving her left leg. Lung examination relatively benign. I would agree with the assessment that she seems euvolemic. She appears to be hemodynamically stable despite her pulmonary emboli. If her hemodynamics remain normal I would reinstitute her beta-blockade and consider switching her losartan to the low-dose Entresto. Do not believe she requires a diuretic. Additional therapy can be instituted in the outpatient setting depending on her clinical course. She did not endorse symptoms of angina or chest pain consistent with an ischemic etiology for cardiomyopathy. She is known to have nonobstructive disease based on angiography performed several years ago. In the absence of improvement in ischemic evaluation can be performed. 2. Left ventricular thrombus: Unclear chronicity. On systemic anticoagulation. Setting of her venous thromboembolic disease this raises the concern for a coagulopathy sorts. 3. Coronary disease: Nonobstructive disease on catheterization 2013. Stress echocardiogram performed 2019 did not reveal any evidence of ischemia. At this point continuing secondary prevention with high-dose atorvastatin a daily aspirin 4. Mitral regurgitation: She is not known to have significant valve abnormalities but with her cardiomyopathy mild dilation of the ventricle she appears to have moderate to severe mitral regurgitation. This could contribute to some of her breathing difficulty. Hopefully with improvement in LV function will see less mitral regurgitation. 5. 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 Possibly right heart strain from her pulmonary emboli. Also common in the setting of a cardiomyopathy. 6. Transaminitis: Certainly could be related to some passive hepatic congestion, but the overall elevation seems out of proportion for that at etiology. The elevation in alkaline phosphatase is also concerning. Recommendations If she continues to be hemodynamically stable I will reinstitute her metoprolol succinate at the prior dose I would convert her losartan 50 mg to low-dose Entresto Continue systemic anticoagulation In the absence of chest discomfort or symptoms of ischemia and ischemic evaluation can be deferred to the outpatient setting History of Present Illness Reason for Consultation: Cardiomyopathy, left ventricular thrombus Requesting Physician: Christian Attending Physician: David Gonzales MD History of Present Illness The patient is a 67-year-old woman with a history of a nonischemic cardiomyopathy, nonobstructive coronary disease and SVT who presented to the hospital with symptoms of worsening left leg discomfort and breathing difficulty. Patient states that for nearly a week she has had some discomfort and swelling involving the left leg. She cannot recall any specific trauma to the extremity. This is caused her some difficulty with walking due to the discomfort. She tries to keep the leg elevated at times. She has been experiencing dyspnea which is chronic but became worse over the past few days. This did not involve orthopnea. No sense of pleuritic chest discomfort or chest discomfort at all. She denies dizziness, lightheadedness or sense of palpitation. She did not have any swelling in the right lower extremity. In the emergency room she was discovered to have an extensive DVT involving the left leg. She was also noted on CT scanning to have multiple bilateral pulmonary emboli. An echocardiogram was also obtained which revealed reduced LV systolic function and that left ventricular apical thrombus. Patient states that at baseline she maintains a good level of activity. She does have an element of dyspnea which is fairly chronic. Recently she has had some constitutional symptoms such as worsening fatigue and chills. Allergies Allergy/AdvReac Type Severity Reaction Status Date / Time pneumococcal vaccine Allergy Severe Unknown Verified 04/29/23 18:42 clarithromycin Allergy Intermediate RASH Verified 04/29/23 18:42 levofloxacin Allergy Intermediate RASH, Verified 04/29/23 18:42 SWELLING Penicillins Allergy Intermediate RASH Verified 04/29/23 18:42 Quinolones Allergy Intermediate RASH Verified 04/29/23 18:42 Sulfa (Sulfonamide Allergy Intermediate RASH Verified 04/29/23 18:42 Antibiotics) erythromycin base AdvReac Intermediate UPSET Verified 04/29/23 18:42 STOMACH Home Medications Medication Instructions Recorded Confirmed Type acetaminophen 650 mg 1,300 mg PO TID PRN Pain, Mild 06/16/19 04/29/23 History tablet,extended release albuterol sulfate 90 mcg/actuation 2 puffs inhalation Q4H PRN 06/16/19 04/29/23 History aerosol inhaler Shortness Of Breath Or Wheezing #1 g aspirin 81 mg chewable tablet 162 mg PO DAILY 06/16/19 04/29/23 History famotidine 40 mg tablet 40 mg PO BID 06/16/19 04/29/23 History hydroxychloroquine 200 mg tablet 200 mg PO DAILY 06/16/19 04/29/23 History pilocarpine HCl 7.5 mg tablet 7.5 mg PO QID 06/16/19 04/29/23 History potassium chloride 20 mEq 20 meq PO BID 06/16/19 04/29/23 History tablet,extended release prednisone 1 mg tablet 2 mg PO DAILY 06/16/19 04/29/23 History tramadol 50 mg tablet 50 mg PO Q6H PRN Pain, Moderate 06/16/19 04/29/23 History magnesium oxide 400 mg PO DAILY 01/09/20 04/29/23 History atorvastatin 40 mg tablet 40 mg PO DAILY #90 tabs 10/13/21 04/29/23 Rx losartan 25 mg tablet 25 mg PO DAILY #30 tabs 08/24/22 04/29/23 Rx metoprolol succinate 50 mg 50 mg PO DAILY #30 tabs 08/24/22 04/29/23 Rx tablet,extended release 24 hr amlodipine 2.5 mg tablet 2.5 mg PO DAILY #90 tabs 02/10/23 04/29/23 Rx cholecalciferol (vitamin D3) 50 50 mcg PO DAILY 04/29/23 04/29/23 History mcg (2,000 unit) capsule (Vitamin D3) folic acid 800 mcg tablet 0.8 mg PO DAILY 04/29/23 04/29/23 History furosemide 40 mg tablet (Lasix) 40 mg PO DAILY PRN Fluid Retention 04/29/23 04/29/23 History glucosam 750 mg-chondroi 100 1 tab PO BID 04/29/23 04/29/23 History mg-hyalur 1.65 mg-CF borate 108 mg tablet ([employer]) riboflavin (vitamin B2) 400 mg 400 mg PO DAILY 04/29/23 04/29/23 History tablet Patient History Medical History Basal cell carcinoma CAD (coronary artery disease) Chronic asthmatic bronchitis Chronic diastolic CHF (congestive heart failure) Lymphocytic interstitial pneumonia Nonischemic cardiomyopathy Palpitations Paroxysmal SVT (supraventricular tachycardia) Raynaud disease Reactive airway disease Sjogrens syndrome Surgical History H/O cardiac radiofrequency ablation S/P cholecystectomy Family History (Updated 04/29/23 @ 23:45 by Alicia Wan DO) Father Cancer Sister Cancer Social History Smoking Status: Never smoker Age Started Using Tobacco: 21; Age Quit Using Tobacco: 33; Do You Dip or Chew Tobacco: No; Hx Alcohol Use: No Hx Substance Use: No Preferred Language: Armenian Communication Ability: Effective Insurance Salesman Required: No Beliefs That Will Affect Care: None Current Living Situation: Alone Other Information That Helps Us Care for You: No Feels Safe at Home: Yes Safety Concerns: Feels Safe At This Time Assistive Devices: None Review of Systems Review of Systems: Per HPI. Physical Exam Physical Exam: She is alert and oriented x3. Mood affect appear normal. She answered all questions appropriately. HEENT: Sclerae are anicteric. Pupils are equal and reactive to light and accommodation. Extraocular movements were intact. Neuro: Cranial nerves intact Lungs: Lungs are clear to auscultation bilaterally. There are no rales wheezes or rhonchi. She has normal respiratory effort without use of accessory muscles. There is normal pulmonary excursion. Cardiac: The rhythm was regular. S1 and S2 were normal. There are no murmurs on examination. The PMI was not markedly displaced on palpation. Extremities: Patient has bilateral radial pulses that are equal in intensity. There is no evidence cyanosis or clubbing. Left leg is markedly edematous and swollen relative to the right. Skin: There are no rashes noted on examination today. Results & Data Vital Signs (Past 12 Hours) Vital Signs Temp Pulse Resp BP BP Pulse Ox O2 Del Method 04/30/23 15:56 37.0 C 114 H 20 122/74 98 Room Air 04/30/23 12:02 36.6 C 95 H 20 115/62 97 Room Air 04/30/23 10:50 Room Air 04/30/23 07:47 36.9 C 97 H 18 108/58 L 99 Room Air Laboratory Results Abnormal Lab Results 04/29/23 04/29/23 04/29/23 18:00 18:00 18:00 WBC 15.69 H RBC 4.61 Hgb 12.9 POC Hgb Hct 40.1 POC Hct MCV 87.0 MCH 28.0 MCHC 32.2 RDW Std Deviation 54.4 H RDW Coeff of Acacia 17.2 H Plt Count 165 MPV 10.6 Immature Gran % (Auto) 0.8 Neut % (Auto) 80.6 Lymph % (Auto) 9.7 Yancey % (Auto) 8.1 Eos % (Auto) 0.5 Baso % (Auto) 0.3 Neut # (Auto) 12.64 H Lymph # (Auto) 1.52 Yancey # (Auto) 1.27 H Eos # (Auto) 0.08 Baso # (Auto) 0.05 Immature Gran # (Auto) 0.13 PT 14.2 H INR 1.3 H APTT 26.7 PTT Ratio 0.9 POC Sodium Sodium 135 L POC Potassium Potassium 4.5 POC Chloride Chloride 102 Carbon Dioxide 20 L POC Total CO2 Anion Gap 13 H POC Anion Gap POC BUN BUN 52 H Creatinine 1.59 H POC Creatinine Est Cr Clr Drug Dosing 25.1 Est GFR ( Amer) 38.3 Est GFR (Non-Af Amer) 33.0 BUN/Creatinine Ratio 32.7 H Glucose 107 H POC Glucose (other) Calcium 9.6 POC Ioniz Calcium Duane Total Bilirubin 0.9 Direct Bilirubin AST 941 H ALT 1302 H Alkaline Phosphatase 508 H Ammonia Troponin I High Sens 159.0 H* Total Protein 7.4 Albumin 4.2 Globulin 3.2 Albumin/Globulin Ratio 1.3 TSH Acetaminophen SARS-CoV-2, RNA, NAAT 04/29/23 04/29/23 04/29/23 18:00 18:06 18:30 WBC RBC Hgb POC Hgb 14.6 Hct POC Hct 43 MCV MCH MCHC RDW Std Deviation RDW Coeff of Acacia Plt Count MPV Immature Gran % (Auto) Neut % (Auto) Lymph % (Auto) Yancey % (Auto) Eos % (Auto) Baso % (Auto) Neut # (Auto) Lymph # (Auto) Yancey # (Auto) Eos # (Auto) Baso # (Auto) Immature Gran # (Auto) PT INR APTT PTT Ratio POC Sodium 135 Sodium POC Potassium 4.5 Potassium POC Chloride 106 Chloride Carbon Dioxide POC Total CO2 19 L Anion Gap POC Anion Gap 15.0 L POC BUN 51 H BUN Creatinine POC Creatinine 1.6 H Est Cr Clr Drug Dosing Est GFR ( Amer) Est GFR (Non-Af Amer) BUN/Creatinine Ratio Glucose POC Glucose (other) 114 H Calcium POC Ioniz Calcium Duane 1.11 L Total Bilirubin Direct Bilirubin AST ALT Alkaline Phosphatase Ammonia Troponin I High Sens Total Protein Albumin Globulin Albumin/Globulin Ratio TSH 1.846 Acetaminophen SARS-CoV-2, RNA, NAAT NEGATIVE 04/29/23 04/29/23 04/30/23 23:22 23:22 02:03 WBC RBC Hgb POC Hgb Hct POC Hct MCV MCH MCHC RDW Std Deviation RDW Coeff of Acacia Plt Count MPV Immature Gran % (Auto) Neut % (Auto) Lymph % (Auto) Yancey % (Auto) Eos % (Auto) Baso % (Auto) Neut # (Auto) Lymph # (Auto) Yancey # (Auto) Eos # (Auto) Baso # (Auto) Immature Gran # (Auto) PT INR APTT > 139.0 H* PTT Ratio > 4.9 POC Sodium Sodium POC Potassium Potassium POC Chloride Chloride Carbon Dioxide POC Total CO2 Anion Gap POC Anion Gap POC BUN BUN Creatinine POC Creatinine Est Cr Clr Drug Dosing Est GFR ( Amer) Est GFR (Non-Af Amer) BUN/Creatinine Ratio Glucose POC Glucose (other) Calcium POC Ioniz Calcium Du[place] Total Bilirubin Direct Bilirubin AST ALT Alkaline Phosphatase Ammonia Troponin I High Sens 119.0 H* D Total Protein Albumin Globulin Albumin/Globulin Ratio TSH Acetaminophen 6 L SARS-CoV-2, RNA, NAAT 04/30/23 04/30/23 04/30/23 04:32 04:32 04:32 WBC 16.32 H RBC 4.07 L Hgb 11.3 L POC Hgb Hct 34.3 L POC Hct MCV 84.3 MCH 27.8 MCHC 32.9 RDW Std Deviation 53.1 H RDW Coeff of Acacia 17.2 H Plt Count 158 MPV 10.6 Immature Gran % (Auto) Neut % (Auto) Lymph % (Auto) Yancey % (Auto) Eos % (Auto) Baso % (Auto) Neut # (Auto) Lymph # (Auto) Yancey # (Auto) Eos # (Auto) Baso # (Auto) Immature Gran # (Auto) PT INR APTT PTT Ratio POC Sodium Sodium 135 L POC Potassium Potassium 4.8 POC Chloride Chloride 107 Carbon Dioxide 20 L POC Total CO2 Anion Gap 8 POC Anion Gap POC BUN BUN 46 H Creatinine 1.22 H D POC Creatinine Est Cr Clr Drug Dosing 32.0 Est GFR ( Amer) 52.7 Est GFR (Non-Af Amer) 45.5 BUN/Creatinine Ratio 37.7 H Glucose 108 H POC Glucose (other) Calcium 8.9 POC Ioniz Calcium Duane Total Bilirubin 0.8 Direct Bilirubin 0.3 H AST 542 H ALT 935 H Alkaline Phosphatase 437 H Ammonia 40.0 Troponin I High Sens Total Protein 5.9 L D Albumin 3.4 Globulin Albumin/Globulin Ratio TSH Acetaminophen SARS-CoV-2, RNA, NAAT 04/30/23 04/30/23 04/30/23 04:32 04:32 12:35 WBC RBC Hgb POC Hgb Hct POC Hct MCV MCH MCHC RDW Std Deviation RDW Coeff of Acacia Plt Count MPV Immature Gran % (Auto) Neut % (Auto) Lymph % (Auto) Yancey % (Auto) Eos % (Auto) Baso % (Auto) Neut # (Auto) Lymph # (Auto) Yancey # (Auto) Eos # (Auto) Baso # (Auto) Immature Gran # (Auto) PT INR APTT 55.2 H* 45.3 H* PTT Ratio 2.0 1.6 POC Sodium Sodium POC Potassium Potassium POC Chloride Chloride Carbon Dioxide POC Total CO2 Anion Gap POC Anion Gap POC BUN BUN Creatinine POC Creatinine Est Cr Clr Drug Dosing Est GFR ( Amer) Est GFR (Non-Af Amer) BUN/Creatinine Ratio Glucose POC Glucose (other) Calcium POC Ioniz Calcium Du[place] Total Bilirubin Direct Bilirubin AST ALT Alkaline Phosphatase Ammonia Troponin I High Sens 112.6 H* Total Protein Albumin Globulin Albumin/Globulin Ratio TSH Acetaminophen SARS-CoV-2, RNA, NAAT Diagnostic Findings 1. Echo 09/21/14: Severely reduced LV systolic function. EF 20-25%. Global severe hypokinesis to akinesis with relative sparing of inferolateral base and lateral base. Top normal LV size. Mildly dilated RV with severely reduced systolic function. Moderate MR. Moderate TR. Mild to moderate PI. RVSP 50-60 mmHg. 2. Cardiac cath 09/24/14: Ostial LMCA 30%. Luminal irregularities in LAD, circumflex, and dominant RCA. PA pressure 31/11 mmHg with a mean of 20. Normal PCWP. 3. Echo 10/19/14: Normal LV size with mild to moderately reduced systolic function. EF 40-45%. Global hypokinesis. Mild MR. RVSP 28 mmHg. 4. Holter 04/29/15: Sinus rhythm. Average heart rate 96 (60-129). Occasional PVCs and PACs. One episode of paroxysmal SVT, 3 beats. Normal diurnal variation. 5. Echo 05/31/2015: Normal LV size. Low normal LV systolic function. EF 50-55 %. Normal wall motion. No significant valvular abnormalities. RVSP 27 mmHg. 6. Echo 12/11/2016: Normal LV size and systolic function. EF 55-60%. Normal wall motion. No LVH. No significant valvular abnormalities. RVSP 28. 7. Stress Echo 05/08/2019: Negative at 115% MPHR. Negative ECG. Episodes of SVT noted during exercise and into recovery. 8 minutes 50 seconds Calos protocol. EF 55-60%. Normal wall motion. No significant valvular abnormalities. No significant diastolic dysfunction. Normal RVSP. 8. Event monitor 05/12/2019 to 06/03 06/02: Sinus rhythm. Paroxysmal SVT. No reported symptoms. 9. SVT ablation 08/03/2019: Successful performed by Dr. Anderson Echocardiogram today revealed severely reduced LV systolic function with apical thrombus. Mild left atrial dilation. Mild aortic regurgitation. Moderate to severe mitral regurgitation with moderate to severe tricuspid regurgitation and elevated pulmonary pressures. Chest CT demonstrated bilateral pulmonary emboli. ECG Additional Comments: EKG demonstrated sinus tachycardia with T-wave inversions concerning for ischemia PG Care Time/CCT Total # of Minutes Spent Total Time Spent with Patient: Total time spent is greater than 50% in coordination of care (as documented) at patient's floor/unit and/or counseling patient: Coding Level of Care Code 56841 INT INP/OBS CARE 3/75MIN Diagnoses Nonischemic cardiomyopathy I42.8 CAD (coronary artery disease) I25.10 Left ventricular thrombus I51.3 Mitral regurgitation I34.0 Elevated troponin R77.8
[2023-05-01 06:26] LABS: Basophils # (auto) 0.06 K/uL (0-0.2); Basophils % (auto) 0.5 %; Eosinophils # (auto) 0.11 K/uL (0-0.50); Eosinophils % (auto) 0.9 %; Hematocrit (blood only) 37.6 % (37.0-47.0); Hemoglobin 12.1 g/dl (12.0-16.0); Immature Granulocytes # (auto) 0.11 K/uL (0.01-0.20); Immature Granulocytes % (auto) 0.9 %; Lymphocytes # (auto) 1.71 K/uL (1.2-3.4); Lymphocytes % (auto) 14.4 %; Mean Corpuscular Hemoglobin 28.2 pg (25.0-34.0); Mean Corpuscular Hgb Conc 32.2 g/dL (32.0-36.0); Mean Corpuscular Volume 87.6 fL (80.0-100.0); Mean Platelet Volume 10.2 fL (9.4-12.4); Monocytes # (auto) 1.32 K/uL (0.11-0.59); Monocytes % (auto) 11.1 %; Neutrophils % (auto) 72.2 %; Platelet Count 212 K/uL (130-400); RDW Standard Deviation 54.2 fL (36.4-46.3); Red Blood Count 4.29 M/uL (4.20-5.40); White Blood Count 11.91 K/ul (4.8-10.8)
[2023-05-01 06:48] LABS: Albumin Globulin Ratio 1.3 (0.9-2); Albumin Level 3.5 gm/dl (3.4-5.0); Calcium 9.3 mg/dl (8.6-10.3); Creatinine Clr Calc Pharmacy 49.4 ml/min; Est GFR (African American) 80.5 ml/min; Est GFR (Non-African American) 69.4 ml/min; Globulin 2.6 gm/dl (2.5-4.0); Potassium 4.7 mmol/L (3.5-5.1); Total Protein 6.1 gm/dl (6.0-8.3)
[2023-05-01 07:04] LABS: Partial Thromboplastin Ratio 1.7
[2023-05-01 07:06] LABS: Partial Thromboplastin Time 48.8 Seconds (21.0-31.0)
[2023-05-01] MEDS: ASPIRIN 81 MG CHEW PO SCH (09:37)
[2023-05-01] MEDS: HYDROXYCHLOROQUINE SULFATE 200 MG TAB PO SCH (09:38)
[2023-05-01] MEDS: FAMOTIDINE 20 MG TAB PO SCH (09:39)
[2023-05-01] MEDS: predniSONE 1 MG TAB PO SCH (09:39)
[2023-05-01] MEDS ORDERED: APIXABAN 5 MG TABLET PO SCH (09:45)
[2023-05-01] MEDS: METOPROLOL SUCC 50MG EXT REL TAB PO SCH (10:12)
--- NOTE | 2023-05-01 12:26 | Discharge Summary ---
Date of Service May 01, 2023 Admission HPI Per Admitting Provider Pia Bonilla is a pleasant 67yo female with history of CAD, NICM and Sjogrens syndrome presenting with LLE edema and SOB. Patient developed acute swelling of her LLE approximately one week ago involving the entire left leg and thigh. Her leg was stiff and painful. She thought the swelling was secondary to lymphedema so she has been wrapping her leg as well as performing massage and elevating it. Her edema has persisted and she has had progressive pain in her RLE, making walking and ADLs difficult. Patient also admits to 1 week of progressive PELAYO. She denies chest pain, palpitations, dizziness or syncope. She has never had a blood clot before. Denies recent travel or prolonged immobility. Denies hormone use, trauma or family history of VTE. She is NOT up to date with her age appropriate cancer screenings to include Pap smear, mammogram or colonoscopy. Patient has had ongoing fatigue, chills and intermittent diarrhea as well as body aches and nausea with several episodes of bilious vomiting. She admits to poor appetite and decreased oral intake over the last week as well as generalized weakness and falls. In the ER she is tachycardic with HR of 109. Saturations have been adequate on room air - patient placed on supplemental O2 by [place] for comfort. ER Course: Heparin gtt Principal Diagnosis Left lower extremity DVT, pulmonary embolism, left ventricular systolic dysfunction with apical thrombus, suspected ischemic heart disease, elevated troponin, elevated liver enzymes Discharge Exam General-alert and oriented x3, no fevers, no chills HEENT-head atraumatic and normocephalic, pupils equal and reactive to light, extraocular muscles intact Neck-no lymphadenopathy or thyromegaly, trachea midline Chest-clear to auscultation percussion. No rales wheezing or rhonchi Cardiac-regular rate and rhythm, normal S1 and S2 Abdomen-normal bowel sounds, nontender, no hepatosplenomegaly Extremities-1+ edema left lower extremity below the knee Neuro-cranial nerves II through XII intact, motor and sensory function within normal limits, strength symmetrical , no focal deficits Psych-normal affect, normal mood Discharge Data Allergies Allergy/AdvReac Type Severity Reaction Status Date / Time pneumococcal vaccine Allergy Severe Unknown Verified 04/29/23 18:42 clarithromycin Allergy Intermediate RASH Verified 04/29/23 18:42 levofloxacin Allergy Intermediate RASH, Verified 04/29/23 18:42 SWELLING Penicillins Allergy Intermediate RASH Verified 04/29/23 18:42 Quinolones Allergy Intermediate RASH Verified 04/29/23 18:42 Sulfa (Sulfonamide Allergy Intermediate RASH Verified 04/29/23 18:42 Antibiotics) erythromycin base AdvReac Intermediate UPSET Verified 04/29/23 18:42 STOMACH Consultations 04/29/23 20:27 ED Decision to Admit Stat 04/30/23 11:53 Consult Cardiology Routine Ordered Studies 04/29/23 17:55 CT angio chest PE protocol Stat 04/29/23 17:56 US venous doppler LE LT Stat 04/29/23 22:55 US liver Urgent US portal veins doppler [US duplex portal hepatic veins] Urgent Hospital Course (1) Pulmonary emboli: Bilateral. Not producing respiratory failure however. She was treated while hospitalized with a heparin drip. Switch to Eliquis at discharge (2) DVT (deep venous thrombosis): Left lower extremity DVT. No previous history. Treated with heparin drip while hospitalized. Switched to Eliquis at discharge. (3) Abnormal LFTs: Now trending downward. Statin therapy has been discontinued. She is status postcholecystectomy. No evidence of portal venous thrombosis (4) CAD (coronary artery disease): Suspected ischemic heart disease based on regional wall motion abnormalities and diminished ejection fraction. Currently asymptomatic. (5) Chronic diastolic CHF (congestive heart failure): Stable. Monitor intake and output. Continue current medication. Combined systolic/diastolic CHF (6) Sjogrens syndrome: Prednisone dependent. Stable (7) Hypertension: Stable. Continue current medical management (8) Ischemic heart disease: Suspected, based on appearance of cardiac echo. Continue current medical management for now, except for statin. Cardiology consultation appreciated. They will see her on an outpatient basis and she probably will undergo stress testing. Plan Home today, May 01 Total Time Total Time Spent Total Time Spent (In Minutes): 40 minutes Discharge Plan Discharge Items Patient Disposition: Home - Self-Care Reason For Visit: ACUTE PE, LLE DVT Discharge Diagnosis: Left lower extremity DVT, acute pulmonary embolism, left ventricular apical thrombus, suspected ischemic heart disease, elevated liver function enzymes, elevated troponin Condition on Discharge: Good Activity: Resume your previous activity Non-emergency contact: Primary Care Provider Call non-emergency contact if: you have any medication questions Follow-up/Referrals: PCP,NO [Primary Care Provider] - Diet: Regular and Heart Healthy Addtl Attending Provider Instructions: Take Eliquis 5 mg twice a day for blood thinner. Follow-up with cardiology as directed for outpatient stress testing. Follow-up with primary care provider for continued management of left lower extremity blood clot and pulmonary emboli. Stop a atorvastatin Pending Studies at Discharge: No Stand-Alone Forms: My [facility] [employer], Smoking Cessation Medications and DC Order Prescriptions: New Eliquis 5 mg Tablet 5 mg PO BID Qty: 60 0RF Continued metoprolol succinate 50 mg tablet extended release 24 hr 50 mg PO DAILY Qty: 30 1RF losartan 25 mg tablet 25 mg PO DAILY Qty: 30 1RF amlodipine 2.5 mg tablet 2.5 mg PO DAILY Qty: 90 3RF magnesium oxide 400 mg magnesium tablet 400 mg PO DAILY albuterol sulfate 90 mcg/actuation HFA aerosol inhaler 2 puffs inhalation Q4H PRN (Reason: Shortness Of Breath Or Wheezing) Qty: 1 tramadol 50 mg tablet 50 mg PO Q6H PRN (Reason: Pain, Moderate) prednisone 1 mg tablet 2 mg PO DAILY acetaminophen 650 mg tablet extended release 1,300 mg PO TID PRN (Reason: Pain, Mild) aspirin 81 mg tablet,chewable 162 mg PO DAILY famotidine 40 mg tablet 40 mg PO BID hydroxychloroquine 200 mg tablet 200 mg PO DAILY pilocarpine HCl 7.5 mg tablet 7.5 mg PO QID potassium chloride 20 mEq tablet extended release 20 meq PO BID furosemide [Lasix] 40 mg Tablet 40 mg PO DAILY PRN (Reason: Fluid Retention) folic acid 800 mcg Tablet 0.8 mg PO DAILY cholecalciferol (vitamin D3) [Vitamin D3] 50 mcg (2,000 unit) Capsule 50 mcg PO DAILY Move CeutiCare 750 mg-100 mg- 1.65 mg-108 mg Tablet 1 tab PO BID riboflavin (vitamin B2) 400 mg Tablet 400 mg PO DAILY Discontinued atorvastatin 40 mg tablet 40 mg PO DAILY Qty: 90 3RF Discharge Orders: Discharge Order (Routine); Ordered 05/01/23 Ordered By: David Gonzales Admission Data Admit Date/Time: 04/29/23 21:36 Attending Provider: David Gonzales Admit Provider: Alicia Wan Primary Care Provider: PCP,NO Other Providers: Idris Smallwood ; Tito Elizabeth ; Shaun Brown ; Jonathan Stallings ; Alexis Tran ; Garrett Cueto Jr ; Nicholas Meléndez ; Danielle Barajas ; Giovanna Gaona ; Bon Bautista ; Giovany Anderson ; David Lopez ; Janay Adkins ; Katarzyna Patel ; Savage Gomez ; Jose Calvert ; Jonathan Dey V. ; Alicia Wan Coding Level of Care Code 77997 INP/OBS DISCH >30 MIN Diagnoses Pulmonary emboli I26.99 DVT (deep venous thrombosis) I82.409 Abnormal LFTs R79.89 CAD (coronary artery disease) I25.10 Chronic diastolic CHF (congestive heart failure) I50.32 Sjogrens syndrome M35.00 Hypertension I10 Ischemic heart disease I25.9
[2023-05-03 00:07] LABS: HBSAG NON-REACTIVE (NON-REACTIVE); Hepatitis A Antibody IgM NON-REACTIVE (NON-REACTIVE); Hepatitis B Core Antibody IgM NON-REACTIVE (NON-REACTIVE)
== END 2023-05-01 15:42 | disposition home or self-care (01) | DRG 299 ==
LOC: ED 17:26 → SUATTDRO 21:36 → 2E 21:36